=== PATIENT | female | born 1985 | race Caucasian/White ===

== ENCOUNTER 2017-04-14 04:12 | Inpatient (IN) | payer SELFPAY ==
[2017-04-14] MEDS ORDERED: PRENATAL COMPLE1 TAB PO (04:39)
[2017-04-14 04:40] VITALS: BP 116/81; BMI 37.6
[2017-04-14 06:17] LABS: HEMATOCRIT 32.3 % (36.0-48.0); HEMOGLOBIN 10.9 g/dL (12-16); MCH 30.3 pg (26.0-34.0); MCHC 33.7 g/dL (31.0-37.0); MCV 89.7 fL (80.0-100.0); MEAN PLATELET VOLUME 11.8 fL (7.4-10.4); RBC 3.6 10x6/uL (4.00-5.40); RDW 13.8 % (11.5-14.5); WBC 10.5 10x3/uL (4.8-10.8)
[2017-04-14 06:32] LABS: APPEARANCE CLOUDY (CLEAR); BACTERIA MANY /hpf (NONE SEEN); BILIRUBIN NEGATIVE (NEGATIVE); COLOR YELLOW (YELLOW); GLUCOSE NEGATIVE (NEGATIVE); KETONE NEGATIVE (NEGATIVE); MUCUS <1+ /lpf (NONE SEEN); NITRITE NEGATIVE (NEGATIVE); PROTEIN NEGATIVE (NEGATIVE); RED CELLS - URINE OCC /hpf (0-5); SPECIFIC GRAVITY 1.015 (1.005-1.020); UROBILINOGEN NORMAL (NORMAL); WHITE CELLS - URINE 25-50 /hpf (0-5)
[2017-04-14 18:24] VITALS: BP 143/83
--- NOTE | 2017-04-14 18:30 | NUR ---
PT IS RECEIVED FROM RECOVERY ROOM POST VAG DELIVERY AND TUBAL. ;VSS. SANTIAGO CATH INTACT. IV PATENT R WRIST WITH NS WITH PIT AT 125 CC/HR. SMALL LOCIA RUBRA. SCD'S INTACT. BED IS LOW, SIDE RAILS UP X 2 AND CALL LIGHT IN REACH.
[2017-04-14 19:20] VITALS: BP 116/74
--- NOTE | 2017-04-14 21:16 | OP ---
PATIENT NAME: JONATHAN FARRELL MEDICAL RECORD: [id number] :87 LOCATION:[id number] ADMISSION DATE:04/14/17 SURGEON: DERIAN BUTT MD DATE OF OPERATION: 04/14/2017 DELIVERY NOTE Spontaneous vaginal delivery of male weighing 8 pounds 2 ounces, 9 and 9 Apgars, epidural anesthesia. Second-degree midline episiotomy repaired using 2-0 chromic suture. Spontaneous delivery of intact-appearing placenta. ESTIMATED BLOOD LOSS: 400 cc. COMPLICATIONS OF DELIVERY: None. TRANSINT:[id number] Voice Confirmation ID: [id number] DOCUMENT ID: [id number] DERIAN BUTT MD at 2116 CC: [id number] DICTATION DATE: 04/14/17 [address] CURER: 04/14/172023 ADM IN [facility] [address] [id number]
--- NOTE | 2017-04-14 23:55 | NUR ---
IV SALINE LOCKED. SANTIAGO CATH DC'D. MATHEW-CARE DONE. GLYNN DOE. INSTRUCTED PATIENT SHE WILL NEED TO VOID WITHIN 4hrs AND TO CALL FOR ASSISTANCE WHEN GETTING OUT OF BED. ICE PACK TO PERINEUM. BABY IN OPEN CRIB. FOB HERE.
--- NOTE | 2017-04-15 00:45 | NUR ---
BROUGHT BABY TO THE NURSERY PER MOM's REQUEST UNTIL NEXT FEEDING TIME. FOB IN THE ROOM.
--- NOTE | 2017-04-15 01:18 | NUR ---
CALL LIGHT ANSWERED. PAIN LEVEL "9"/10 FROM UMBILICAL LAP INCISION. DEMEROL 100mg PO GIVEN FOR PAIN CONTROL. V/S RECHECKED.
[2017-04-15 01:20] VITALS: BP 112/73
--- NOTE | 2017-04-15 04:55 | NUR ---
UP TO THE BATHROOM TO VOID. GAIT STEADY.
--- NOTE | 2017-04-15 05:04 | NUR ---
PAIN LEVEL 10/10 FROM UMBILICAL LAP INCISION. TORADOL 30mg IV /DEMEROL 100mg PO GIVEN FOR PAIN MANAGEMENT. INFANT HERE FOR . FOB IN THE ROOM.
[2017-04-15 06:17] LABS: HEMATOCRIT 30.3 % (36.0-48.0); HEMOGLOBIN 10.1 g/dL (12-16); MCH 30.2 pg (26.0-34.0); MCHC 33.3 g/dL (31.0-37.0); MCV 90.7 fL (80.0-100.0); MEAN PLATELET VOLUME 11.4 fL (7.4-10.4); RBC 3.34 10x6/uL (4.00-5.40); RDW 13.8 % (11.5-14.5); WBC 12.9 10x3/uL (4.8-10.8)
--- NOTE | 2017-04-15 07:15 | NUR ---
PT WAS RECEIVED SITTING UP IN BED FEEDING BABY. SHE OFFERS NO COMPLAINTS. BABY IS WELL. GEN- AWAKE AND ALERT. LUNGS- CLEAR. HEART- RRR. ABD- SOFT WITH TENDERNESS. EXT- NO EDEMA. PT IS VOIDING WITHOUT DIFFICULTY. SHE IS TOLERATING A REGULAR DIET. BED IS LOW, SIDE RAILS UP X 2 AND CALL LIGHT IN REACH.
[2017-04-15 07:25] LABS: RAPID PLASMA REAGIN Non Reactive (Non Reactive)
--- NOTE | 2017-04-15 07:30 | NUR ---
PT IS SITTING UP IN BED, HOLDING BABY. SHE IS TRYING TO BREASTFEED BABY. SHE STATES THAT HE KEEPS FALLING ASLEEP. BED IS LOW, SIDE RAILS UP X 2 AND CALL LIGHT IN REACH. GEN- AWAKE AND ALERT. LUNGS- CLEAR. HEART- RRR , ABD SOFT WITH TENDERNESS. UMBILICAL LAP INCISION CLEAN AND DRY. EXT- MINIMAL EDEMA.
--- NOTE | 2017-04-15 09:30 | NUR ---
PT IS SLEEPING. BOYFRIEND IS AT BEDSIDE. BED IS LOW, SIDE RAILS UP X 2 AND CALL LIGHT IN REACH.
--- NOTE | 2017-04-15 10:14 | NUR ---
PT STATES THAT HER PAIN IS A 5. PAIN MED GIVEN.
--- NOTE | 2017-04-15 11:16 | NUR ---
DR MELÉNDEZ IS HERE TO SEE PT AND DISCUSS HER BABY.
--- NOTE | 2017-04-15 17:19 | NUR ---
PT AMBULATED IN HALLWAY WITH MUCH ENCOURAGEMENT. CONTINUE TO ENCOURAGE PT.
--- NOTE | 2017-04-15 19:44 | NUR ---
RN TO BEDSIDE. RESUMING CARE OF THIS G2 NOW P2. PT TEARFUL UPON RN ENTERING ROOM. STATES THAT SHE DOESN'T KNOW WHY SHE IS CRYING, SHE IS HURTING WITH SHARP SHOOTING PAIN TO RUQ OF ABD AND BURNING/STINGING TO PERINUM. DR. ACOSTA NOTIFIED, ORDERS REC'D FOR MOTRIN TO BE GIVEN NOW WITH DEMEROL THEN Q 6HP PAIN/CRAMPING AND SIMETHICONE Q4HP GAS. PAIN 8/10, MEDS GIVEN PER ORDERS. ABD SOFT AND NONDISTENDED, BOWEL SOUNDS PRESENT AND ACTIVE X4 QUADS. PT STATES TAHT SHE HAS PASSED "A LITTLE" FLATUS. PT ALSO C/O TENDERNESS TO INCISION. S/O AT BEDSIDE, SUPPORTIVE AND ATTENTIVE TO PT. PT INSTRUCTED ON INCISIONAL CARE AT D/C AND MEDICATIONS. BED IN LOW POSITION WITH UPPER SIDE RAILS RAISED X2. CL AND PHONE WITHIN REACH. WILL CONT TO MONITOR AND ASSIST PRN.
--- NOTE | 2017-04-15 19:54 | NUR ---
PT REQUESTS BREAST PUMP TO PUMP. PUMP PROVIDED PER REQUEST. INSTRUCTED ON USE WITH RETURN DEMONSTRATION PROVIDED BY PT. BED IN LOW POSITION WITH UPPER SIDE RAILS RAISED X2. CL AND PHONE WITHIN REACH. WILL CONT TO MONITOR AND ASSIST PRN.
--- NOTE | 2017-04-15 20:29 | NUR ---
RN TO BEDSIDE. PAIN REASSESSMENT COMPLETED. PAIN 12/21. PT REMAINS TEARFUL. COMPLETED PUMPING FOR 25 MINUTES WITH 5 MLS COLOSTRUM EXPRESSED. PT STATES THAT CRAMPING HAS INTENSIFIED WITH PUMPING. PT REQUEST THAT INFANT BE GIVEN BOTTLE AND COLOSTRUM. INFANT TAKEN TO NBN PER PT REQUEST. BED IN LOW POSITION WITH UPPER SIDE RAILS RAISED X2. CL AND PHONE WITHIN REACH. WILL CONT TO MONITOR AND ASSIST PRN.
--- NOTE | 2017-04-15 21:50 | NUR ---
RN TO BEDSIDE FOR ROUNDS. PT LAYING ON RIGHT SIDE IN SEMIFOWLERS POSITION RESTING WITH EYES CLOSED. RESPIRATIONS REGULAR AND UNLABORED. NO S/S OF DISTRESS NOTED. BED IN LOW POSITION WITH UPPER SIDE RAILS RAISED X2. CL AND PHONE WITHIN REACH. WILL CONT TO MONITOR AND ASSIST PRN.
--- NOTE | 2017-04-15 22:42 | NUR ---
RN TO BEDSIDE FOR ROUNDS. PT IN SEMIFOWLERS POSITION LAYING ON BACK RESTING WITH EYES CLOSED. RESPIRATIONS REGULAR AND UNLABORED. NO S/S OF DISTRESS NOTED. BED IN LOW POSITION WITH UPPER SIDE RAILS RAISED X2. CL AND PHONE WITHIN REACH. WILL CONT TO MONITOR AND ASSIST PRN.
--- NOTE | 2017-04-15 23:20 | NUR ---
SHIFT REPORT FROM WAQAS BANERJEE RN
--- NOTE | 2017-04-15 23:44 | NUR ---
PT TEACHER PRIVATE LIGHT, C/O INC PAIN, ADM DEMEROL PO PER MD ORDERS, SEE EMAR, BABY TO ROOM VIA OPEN CRIB CART PER ADRIAN ROA, RN, PT DENIES FURTHER NEEDS AT THIS TIME
--- NOTE | 2017-04-16 00:40 | NUR ---
PT RESTING WITH EYES CLOSED, RESP QUIET, NO DISTRESS NOTED, LEFT UNDISTURBED AT THIS TIME, FOB ASLEEP ON COUCH
--- NOTE | 2017-04-16 02:07 | NUR ---
PT RESTING WITH EYES CLOSED, RESP QUIET, NO DISTRESS NOTED, LEFT UNDISTURBED AT THIS TIME, FOB ASLEEP ON COUCH
--- NOTE | 2017-04-16 04:20 | NUR ---
PT AWAKE, BABY, C/O ABD CRAMPING, ADM MOTRIN PO PER MD ORDERS, SEE EMAR, FRESH H20 SERVED, PT DENIES FURTHER NEEDS, FOB ASLEEP ON COUCH
--- NOTE | 2017-04-16 06:28 | NUR ---
PT AWAKE, BABY AT BEDSIDE IN OPEN CRIB CART, PT DENIES NEEDS AT THIS TIME, FOB ASLEEP ON COUCH
[2017-04-16 07:45] VITALS: BP 120/76
--- NOTE | 2017-04-16 07:45 | NUR ---
ASSESSMENT PER FLOW SHEET, VS OBTAINED, SALINE LOCK RIGHT HAND INTACT WITH NO REDNESS OR EDEMA, UMB INC WITH STERI STRIPS CDI WITH NO DRAINAGE NOTED, PT REPORTS MOD BLEEDING WITH NO CLOTS, PT REPORTS FLATUS, NO BM AND VOIDING BY SELF WITH NO DIFFICULTY, PT RATES INC PAIN 5/10, REQUESTS TO JUST TRY THE DEMEROL 50 AT THIS TIME
--- NOTE | 2017-04-16 08:30 | NUR ---
PT RESTING, RATES INC PAIN 07/23, DENIES NEEDS AT THIS TIME
--- NOTE | 2017-04-16 09:00 | NUR ---
SHIFT REPORT TO LONNIE DOYLE RN
--- NOTE | 2017-04-16 09:06 | NUR ---
LE@ 8:45 Charu Manzano 04/16/17 S: Patient states, " She is sore, had a tubal and had no idea she would feel like this. Wish she would have waited to get this done, she didn't know it would effect . It hurts bad if anything touches the area by her belly button. I was pumping because the nurse told me if I didn't feed baby then they would give formula. I really don't want to pump, when I do my nipples get really big, is that ok? I've only pumped twice. Baby did really good earlier with feeding. My nipples are sore." O: Patient lying in bed, infant in nursery, and family member on sofa sleep. Asked if she is ok with me looking at her nipples, patient states, "Yes". Patient nipples are really red, including her areola. Patient does have flat nipples. My observations is that the pump size she has been using is to large, it's pulling both her areola and her nipple inside the flange when she did pump. The right nipple has a small scab on the middle of the nipple and appears to be worst then the left nipple. Infant is having a hard time latching on to the nipple, a nipple shield is needed due to patient having flat nipples. Encouraged patient not to pump instead place to the breast for every feeding. It's important to ask for help as needed when latching , supply and demand, what takes out your body will make more of. It is normal for to want to feed on demand (explained feeding cues) every 2 hours during the day and 3-4 hours at night. The more infant is placed to the breast, this will help with your milk production. Explained breast milk composition, what to expect the first week, benefits of skin to skin, and how to verify is latched to the breast correctly. Provided nipple shield and showed how to apply correctly, had patient apply nipple shield to the breast, patient did apply correctly and is aware of how to correctly apply. Gave lanolin and explain usages, had patient apply to both nipples. I will follow up for next feeding. Asked if any questions or concerns, patient declined. A: Patient expresses concern for soreness due to tubal. P: Continue to encouraged exclusively . Toni Ng, CLC
--- NOTE | 2017-04-16 09:30 | NUR ---
PT IS . BABY IS DOING BETTER . PT OFFERS NO COMPLAINTS.
--- NOTE | 2017-04-16 09:47 | NUR ---
Charu Manzano 04/16/17 LE@ 9:25 O; LC in room to help with infant latch, is on left breast in foot ball hold, not using nipple shield, observed feeding, infant came off the breast, mother nipple is flatter on one side, due to infant being latched incorrectly. Patient states she knows I told her to use the nipple shield but she doesn't want to use it. Explained the purpose of why it is important to use the shield. Patient declined to use. Offered to help latch on the right breast. Patient states infant latched on the left breast for about 15 minutes. was placed in laid back position on the right breast, directly in front of the breast, nose opposite of nipple. infant latched with in a few moments. latched at 9:32 on the right breast, round check, mouth 140 degrees, sucking in a rocking motion, infant appear to be content with feeding, mother express concern for nipple being sore but does state, " This feels so much better then trying to hold her in a football hold because it really hurt by stomach to move a lot. Showed patient how to verify infant is latched correctly. Patient states," I'm more comfortable feeding in this position." Observed removed milk from the breast, infant content with feeding. Asked if any questions, patient declined. Praised for , Encouraged to continue to feed infant on demand, ask for help as needed, provide work cell number, please call as needed. Patient verbally agrees. Toni Ng, CLC
[2017-04-16] MEDS ORDERED: IBUPROFEN600 MG PO (10:47)
--- NOTE | 2017-04-16 11:00 | NUR ---
PT IS RESTING IN BED. STATES THAT SHE IS TIRED. NO OTHER COMPLAINTS.
--- NOTE | 2017-04-16 13:00 | NUR ---
PT IS LYING IN BED. OFFERS NO COMPLAINTS. BED IS LOW. SIDE RAILS UP X 2 AND CALL LIGHT IN REACH.
--- NOTE | 2017-04-16 13:30 | NUR ---
DISCHARGE INSTRUCTIONS GIVEN AND DISCUSSED. PT WAS TAKEN TO VEHICLE IN WHEELCHAIR.
== END 2017-04-16 14:00 | disposition home or self-care (01) | DRG 767 ==
LOC: D.LD 04:12 → D.WS 18:14 → D.LD 04-15 19:16
PROVIDERS: ADMIT Obstetrics & Gynecology
PROC: 0UB70ZZ Excision of Bilateral Fallopian Tubes, Open Approach (ICD-10-PCS; 2017-04-14)
PROC: 0W8NXZZ Division of Female Perineum, External Approach (ICD-10-PCS; 2017-04-14)
PROC: 10907ZC Drainage of Amniotic Fluid, Therapeutic from Products of Conception, Via Natural or Artificial Opening (ICD-10-PCS; 2017-04-14)
PROC: 3E0P3VZ Introduction of Hormone into Female Reproductive, Percutaneous Approach (ICD-10-PCS; 2017-04-14)
PROC: 10E0XZZ Delivery of Products of Conception, External Approach (ICD-10-PCS; principal; 2017-04-14 13:00)
DX: O48.0 Post-term pregnancy (principal); Z3A.40 40 weeks gestation of pregnancy; Z37.0 Single live birth; Z30.2 Encounter for sterilization

== ENCOUNTER 2018-04-28 15:36 | Emergency (ER) | payer BC ==
[~2018-04-28] VITALS: Ht 157.5 cm; Wt 72.7 kg
[~2018-04-28 15:36] MED LIST: IBUPROFEN600 MG PO; PRENATAL COMPLE1 TAB PO
[2018-04-28 15:42] VITALS: Ht 157.5 cm; Wt 72.7 kg
[2018-04-28] MEDS ORDERED: ZPAK PO (15:44)
[2018-04-28 17:18] LABS: BASOPHILS 0.7 % (0-2); EOSINOPHILS 6.7 % (0-7); HEMATOCRIT 42.6 % (36.0-48.0); HEMOGLOBIN 14.6 g/dL (12-16); IMMATURE GRANULOCYTES 0.2 % (0-5); LYMPHOCYTES 26.2 % (15-50); MCH 31.6 pg (26.0-34.0); MCHC 34.3 g/dL (31.0-37.0); MCV 92.2 fL (80.0-100.0); MEAN PLATELET VOLUME 10.5 fL (7.4-10.4); MONOCYTES 13.2 % (2-11); PLATELET COUNT 307 10x3/uL (130-400); RBC 4.62 10x6/uL (4.00-5.40); RDW 12.4 % (11.5-14.5); WBC 4.6 10x3/uL (4.8-10.8)
[2018-04-28 17:35] LABS: ALBUMIN 3.6 g/dL (3.4-5.0); ALKALINE PHOSPHATASE 94 U/L (46-116); ALT (SGPT) 23 U/L (10-68); AMYLASE - SERUM 31 U/L (25-115); CALC OSMOLALITY 278 mosm/kg (275-300); CALCIUM 7.9 mg/dL (8.5-10.1); CARBON DIOXIDE 26.2 mmol/L (21.0-32.0); CHLORIDE - SERUM 106 mmol/L (98-107); CREATININE - SERUM 0.8 mg/dL (0.6-1.3); GLUCOSE 85 mg/dL (74-106); LIPASE 109 U/L (73-393); POTASSIUM - SERUM 3.8 mmol/L (3.5-5.1); PROTEIN - SERUM 7.5 g/dL (6.4-8.2); SODIUM 141 mmol/L (136-145); UREA NITROGEN 10 mg/dL (7-18); eGFR NON AFRICAN AMERICAN 89 mL/min (90-120)
[2018-04-28 17:56] LABS: HCG URINE NEGATIVE (NEGATIVE)
[2018-04-28 18:00] LABS: APPEARANCE HAZY (CLEAR); COLOR YELLOW (YELLOW); NITRITE NEGATIVE (NEGATIVE); PROTEIN NEGATIVE (NEGATIVE)
[2018-04-28 18:01] LABS: BACTERIA FEW /hpf (NONE SEEN); BILIRUBIN NEGATIVE (NEGATIVE); GLUCOSE NEGATIVE (NEGATIVE); KETONE NEGATIVE (NEGATIVE); RED CELLS - URINE NONE SEEN /hpf (0-5); UROBILINOGEN NORMAL (NORMAL); WHITE CELLS - URINE 0-5 /hpf (0-5)
[2018-04-28] MEDS ORDERED: ZOFRAN4 MG PO (19:01)
[2018-04-28 19:39] VITALS: BP 123/74
== END 2018-04-28 19:35 | disposition home or self-care (01) ==
LOC: D.ER 15:36
PROVIDERS: Family Medicine
DX: K52.9 Noninfective gastroenteritis and colitis, unspecified (principal); R11.2 Nausea with vomiting, unspecified; F17.200 Nicotine dependence, unspecified, uncomplicated

== ENCOUNTER 2020-09-21 07:08 | Emergency (ER) | payer BC ==
[~2020-09-21] VITALS: Ht 157.5 cm; Wt 89.5 kg
[~2020-09-21 07:08] MED LIST changes: +ZOFRAN4 MG PO; +ZPAK PO
[2020-09-21 07:13] VITALS: BP 115/59; Ht 157.5 cm; Wt 89.5 kg
== END 2020-09-21 08:11 | disposition home or self-care (01) ==
LOC: D.ER 07:08
DX: S93.401A Sprain of unspecified ligament of right ankle, initial encounter (principal); X50.1XXA Overexertion from prolonged static or awkward postures, initial encounter; Y93.9 Activity, unspecified; Y92.9 Unspecified place or not applicable

== ENCOUNTER 2020-12-04 14:34 | Emergency (ER) | payer BC ==
[~2020-12-04] VITALS: Ht 157.5 cm; Wt 90.9 kg
[2020-12-04 14:48] VITALS: BP 125/78; Ht 157.5 cm; Wt 90.9 kg
[2020-12-04] MEDS ORDERED: CELEXA20 MG PO (14:51)
[2020-12-04] MEDS ORDERED: CYCLOBENZAPRINE10 MG PO (16:01)
[2020-12-04] MEDS ORDERED: HYDROCODON-ACE1 EAC7 PO (16:01)
== END 2020-12-04 17:00 | disposition home or self-care (01) ==
LOC: D.ER 14:34
DX: R07.89 Other chest pain (principal)